=== PATIENT | female | born 1990 | race Caucasian/White ===

== ENCOUNTER 2020-12-28 14:28 | Emergency (ER) | payer OTHER ==
[~2020-12-28] VITALS: Ht 175.2 cm; Wt 65.8 kg
[2020-12-28] MEDS ORDERED: LEVOFLOXACIN500 MG PO (16:00)
[2020-12-28] MEDS ORDERED: FLONASE ALLERG9.9 ML NAS (16:00)
== END 2020-12-28 16:40 | disposition home or self-care (01) ==
LOC: ED 14:28
DX: J01.90 Acute sinusitis, unspecified (principal); B96.89 Other specified bacterial agents as the cause of diseases classified elsewhere; Z86.16 Personal history of COVID-19